=== PATIENT | male | born 1945 | race Caucasian/White ===

== ENCOUNTER → 2018-03-07 | Outpatient (CLI) | payer OTHER | END | disposition home or self-care (01) | LOC: RAD 13:47 | PROC: 3E0R3KZ Introduction of Other Diagnostic Substance into Spinal Canal, Percutaneous Approach (ICD-10-PCS; principal; 2018-03-07) | DX: T84.216A Breakdown (mechanical) of internal fixation device of vertebrae, initial encounter (principal); M48.05 Spinal stenosis, thoracolumbar region; M24.28 Disorder of ligament, vertebrae; M51.24 Other intervertebral disc displacement, thoracic region; M51.85 Other intervertebral disc disorders, thoracolumbar region; Z74.09 Other reduced mobility; Z98.890 Other specified postprocedural states | CPT/HCPCS: 62305; 72120; 72129; 72132 ==